=== PATIENT | male | born 1980 | race Caucasian/White ===

== ENCOUNTER 2017-05-14 15:19 | Emergency (ER) | payer SELFPAY ==
--- NOTE | 2017-05-14 16:23 | ED Physician Documentation ---
General Adult - HISTORIAN Historian: patient - HPI Stated Complaint: Left Jaw Pain/Swelling Chief Complaint: General Adult Onset: days ago (1) Timing: still present Severity: moderate Further Comments: yes (Pt is a 36 yo male with pain and swelling in L lower jaw. ) - ROS CONST: no problems EYES/ENT: other (L lower jaw pain) CVS/RESP: none GI/: none MS/SKIN/LYMPH: none - PAST HX Past History: other (ortho surgery) Allergies/Adverse Reactions: Allergies Allergy/AdvReac Type Severity Reaction Status Date / Time No Known Allergies Allergy Unverified 05/14/17 15:39 Home Medications: Ambulatory Orders Medication Instructions Recorded NK [NK] 05/14/17 - SOCIAL HX Smoking History: cigarettes - FAMILY HX Family History: No - VITAL SIGNS Vital Signs: Vital Signs Temp Pulse Resp BP Pulse Ox 98.4 F 76 18 156/103 98 05/14/17 15:20 05/14/17 15:20 05/14/17 15:20 05/14/17 15:20 05/14/17 15:20 - REVIEWED ASSESSMENTS Nursing Assessment Reviewed: Yes Vitals Reviewed: Yes Progress - Progress Progress: Rx Keflex 500 mg po tid x 10 days. Rx [place] (5/325) 1-2 po q 4-6 h prn # 10. General Adult Physical Exam - PHYSICAL EXAM GENERAL APPEARANCE: moderate distress EENT: other (poor dentition; L lower jaw pain swelling) NECK: normal inspection, supple RESPIRATORY: no resp distress, chest non-tender, breath sounds normal CVS: reg rate & rhythm SKIN: warm/dry EXTREMITIES: normal range of motion, no evidence of injury NEURO: oriented X3, motor nml, sensation nml Discharge Clincal Impression: dental pain Referrals: Primary Doctor,No [Primary Care Provider] - Home Medications: Ambulatory Orders NK [NK] 05/14/17 Condition: Good Disposition: 01 HOME, SELF-CARE Decision to Admit: NO Decision Time: 16:24
[2017-05-14 16:34] VITALS: BP 148/88
== END 2017-05-14 16:30 | disposition home or self-care (01) ==
LOC: ED 15:19
DX: K08.89 Other specified disorders of teeth and supporting structures (principal)
CPT/HCPCS: 99283

== ENCOUNTER 2017-05-15 18:34 | Emergency (ER) | payer SELFPAY ==
--- NOTE | 2017-05-15 18:44 | ED Physician Documentation ---
General Adult - HISTORIAN Historian: patient - HPI Stated Complaint: dental pain Chief Complaint: General Adult Onset: days ago Timing: still present Severity: moderate Further Comments: yes (Pt is a 36 yo male with dental pain who was seen here yesterday and rx'd #10 percocet and keflex. Pt returns just over 24 hrs later saying that he is still in pain and saying that he has taken all 10 percocet tabs. He states that he has been taking the Keflex as rx'd.) - ROS CONST: no problems EYES/ENT: other (dental pain) CVS/RESP: none GI/: none MS/SKIN/LYMPH: none - PAST HX Past History: none Allergies/Adverse Reactions: Allergies Allergy/AdvReac Type Severity Reaction Status Date / Time No Known Allergies Allergy Unverified 05/14/17 15:39 Home Medications: Ambulatory Orders Medication Instructions Recorded NK [NK] 05/14/17 - SOCIAL HX Smoking History: cigarettes - FAMILY HX Family History: No - VITAL SIGNS Vital Signs: Vital Signs Temp Pulse Resp BP Pulse Ox 148/88 05/14/17 16:30 - REVIEWED ASSESSMENTS Nursing Assessment Reviewed: Yes Vitals Reviewed: Yes Progress - Progress Progress: Toradol 60 mg IM Continue Keflex as rx'd. General Adult Physical Exam - PHYSICAL EXAM GENERAL APPEARANCE: mild distress EENT: pharynx normal, other (poor dentition, L lower jaw tenderness/swelling) NECK: normal inspection, supple RESPIRATORY: no resp distress, chest non-tender, breath sounds normal CVS: reg rate & rhythm BACK: normal inspection SKIN: warm/dry, normal color EXTREMITIES: non-tender, normal range of motion, no evidence of injury NEURO: oriented X3, motor nml, sensation nml Discharge Clincal Impression: Pain, dental Referrals: Primary Doctor,No [Primary Care Provider] - 2 Days Home Medications: Ambulatory Orders NK [NK] 05/14/17 Condition: Stable Disposition: 01 HOME, SELF-CARE Decision to Admit: NO Decision Time: 19:10
[2017-05-15] MEDS: KETOROLAC TROMETHAMINE 60 MG/2 ML VIAL IM ONE (19:05)
[2017-05-15 19:24] VITALS: BP 148/72
== END 2017-05-15 19:20 | disposition home or self-care (01) ==
LOC: ED 18:34
DX: K08.89 Other specified disorders of teeth and supporting structures (principal)
CPT/HCPCS: 96372; 99283; J1885